=== PATIENT | female | born 1955 | race Caucasian/White ===

== ENCOUNTER 2022-08-25 16:03 | Emergency (ER) | payer MEDICARE, SELFPAY ==
[2022-08-25 16:08] VITALS: BP 148/77; PULSE 75; RESP 16; TEMP 36.6; O2SAT 95; BMI 24.9
--- NOTE | 2022-08-25 16:28 | CRLHL7_ITS ---
For Patients: As a result of the Cures Act, medical imaging exams and procedure reports are released immediately into your electronic medical record. You may view this report before your referring provider. If you have questions, please contact your health care provider. INDICATION: New left C6 radiculopathy. TECHNIQUE: Three views of the cervical spine. COMPARISON: None. FINDINGS: There is straightening of the normal cervical lordosis which could be related to positioning. Otherwise sagittal alignment is normal. There is no evidence of acute fracture. There is moderate to severe disc space narrowing and C4-5 and moderate at C5-6 and C6-7. Degenerative changes also affect the facet joints. The visualized soft tissues are unremarkable. IMPRESSION: Degenerative changes in the cervical spine most prominently at C4-5. No acute abnormality. Dictated by Alina Klein MD @ 08/25/2022 5:20:13 PM (Electronically Signed)
--- NOTE | 2022-08-25 16:30 | ED_ITS ---
HPI - General Adult General Chief complaint: Extremity Pain/Injury, Upper Stated complaint: Left arm pain Time Seen by Provider: 08/25/22 16:04 Source: patient and family Mode of arrival: ambulatory Limitations: no limitations History of Present Illness HPI narrative: 67-year-old female with no significant prior neurological or cardiac history presents to the emergency department with a 4 hour history of burning type pain in her left arm. It is mainly in the left biceps area but also a bit in the medial elbow. It radiates up the shoulder and into the left lateral neck. It is not affected by position or movement. No prior history of similar symptoms. She does admit that she has been using her left arm or since she developed bone spurs in her right shoulder again. She does have osteoarthritis of multiple sites. She says there is no true weakness in the extremity but she had difficulty tight squeezing a patent tube earlier today and had to use a stick to roll the tube instead. 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 She feels like her symptoms have been constant though not really waxing and waning. There are no other neurological changes like vision changes, vertigo, numbness or tingling. There is no confusion, difficulty with word finding. agrees that she is at her neurological baseline. There has been no falls, trauma or injury. She has not tried taking any medication to help with her symptoms. There is no headache. No cervical imaging in the past. No recent chiropractor visits. No fevers or recent illness. Past medical history she states is benign, no major long-term health problems besides well-controlled depression and osteoarthritis of multiple sites. She does take a low-dose SSRI with paroxetine 20 mg once daily. She denies tobacco use. 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 She reports a prior hip replacement and removal of bone spurs in her right shoulder 20 years ago. No family history of cerebrovascular disease. ROS is otherwise negative times 12 systems, other than her baseline chronic osteoarthritic symptoms. Related Data Home Medications Medication Instructions Recorded Confirmed paroxetine HCl 20 mg tablet 20 mg PO DAILY 08/25/22 08/25/22 Previous Rx's Medication Instructions Recorded cyclobenzaprine 10 mg tablet 5 - 10 mg PO HS PRN muscle spasm 08/25/22 #20 tabs prednisone 20 mg tablet 20 mg PO DAILY #5 tabs 03/25/23 Allergies Allergy/AdvReac Type Severity Reaction Status Date / Time No Known Drug Allergies Allergy Verified 08/25/22 16:13 [facility] Social History Smoking Status: Never smoker Do you use any of these nicotine containing products: None Second hand tobacco smoke exposure: No How often do you have a drink containing alcohol: monthly or less How many standard drinks containing alcohol do you have on a typical day: 1 or 2 How often do you have six or more drinks on one occasion: Never AUDIT-C Alcohol total score: 1 Non-prescribed substance use: denies use service: No Exam Const: Vital Signs, click to edit/add: Vital Signs - 24 hr 08/25/22 16:08 Temperature 97.8 F Pulse Rate [Pulse Oximeter] 75 Respiratory Rate 16 Blood Pressure [Ri ght Upper Arm] 148/77 H Pulse Oximetry 95 Oxygen Delivery Me thod Room Air Documenting provider has reviewed patient's vital signs: yes Common normals: no apparent distress and alert General appearance: cooperative, comfortable and well kempt HENMT: Common normals: normocephalic Head and scalp: normocephalic Mouth: oral and palatal mucosa normal Throat: posterior oropharynx normal Eye: Common normals: PERRL, EOMs intact bilaterally and conjunctivae normal General eye: normal appearance of both eyes Conjunctiva: conjunctiva(e) normal Pupil: PERRL Neck & C-Spine: Common normals: full ROM and no lymphadenopathy Other: Cervical range of motion is normal. There is no point bony tenderness to the cervical spine. With maneuvers, I can elicit pain at the lateral process of C6 and C7 on the left only. This does reproduce the symptoms that she is describing. Resp: Common normals: normal respiratory effort, no use of accessory muscles and clear to auscultation bilaterally Effort & inspection: able to speak in complete sentences Auscultation: clear to auscultation bilaterally Cardio: Common normals: regular rate, regular rhythm, S1 normal heart sound, S2 normal heart sound and no murmurs Rate: regular rate Rhythm: regular rhythm Heart sounds: S1 normal and S2 normal Extremity: Other: Left shoulder with some mild impingement signs, does not really reproduce the pain she is describing. The wrist and elbow have no effusion. Normal ip litigation paralegal strength in the hands. There is some mild osteoarthritic changes, especially in the CMC area of the thumb. Mild tenderness to palpation over the extensor tendons of the thumb as well. Neuro: Sensorium/orientation: alert Speech: speech normal Motor exam: strength 5/5 throughout, no tremor noted and no movement abnormalities noted Psych: Appearance: well kempt Attitude: engaged Activity/motor behavior: appropriate eye contact Mood and affect: euthymic mood Insight: insight good Judgement: judgment good Skin: Common normals: no rashes or lesions noted General skin exam: no rashes or lesions noted Course Vital Signs Vital signs: Initial Vital Signs Temperature 97.8 F 08/25/22 16:08 Temperature Source Temporal Artery Scan 08/25/22 16:08 Pulse Rate 75 08/25/22 16:08 Pulse Rhythm Regular 08/25/22 16:08 Pulse Strength 3+ Normal 08/25/22 16:08 Respiratory Rate 16 08/25/22 16:08 Blood Pressure 148/77 H 08/25/22 16:08 Blood Pressure Mean 100 08/25/22 16:08 Blood Pressure Position Sitting 08/25/22 16:08 Pulse Oximetry 95 08/25/22 16:08 Oxygen Delivery Method Room Air 08/25/22 16:08 Vital Signs Temperature 97.8 F 08/25/22 16:08 Pulse Rate 75 08/25/22 16:08 Respiratory Rate 16 08/25/22 16:08 Blood Pressure 148/77 H 08/25/22 16:08 Pulse Oximetry 95 08/25/22 16:08 Oxygen Delivery Method Room Air 08/25/22 16:08 Temperature 97.8 F 08/25/22 16:08 Pulse Rate 75 08/25/22 16:08 Respiratory Rate 16 08/25/22 16:08 Blood Pressure 148/77 H 08/25/22 16:08 Pulse Oximetry 95 08/25/22 16:08 Oxygen Delivery Method Room Air 08/25/22 16:08 Medical Decision Making MDM Narrative Medical decision making narrative: Focal neurological symptoms most suspicious for cervical radiculopathy rather than stroke. Discussed with patient. Symptoms reproducible with palpation over C6-C7, do not recommend head CT. Recommend neck x-ray. She was agreeable to this. Will await x-ray findings, would be a good candidate for a trial of muscle relaxants and a steroid taper. Update: X-ray findings reviewed with patient. Lasted degenerative changes suspicious for radiculopathy. I have recommended a course of steroids, muscle relaxant and rest. She was agreeable to this. Will give 30 mg of prednisone p.o. x1 and Tylenol here in the ED. Discussed use of Tylenol, ibuprofen during the day, Flexeril if needed during the night. Symptoms really should be improving pretty markedly within 3 days on the steroid. Counseled that if she still has persistent symptoms she should contact her primary care team. She may be a good candidate for long-term treatments if she continues to have flares such as physical therapy, injections or even surgery. I would recommend MRI of her symptoms are not improving markedly within a week. Imaging Data Cervical spine x-ray: Attestation: I have reviewed the pertinent imaging results. My impression: Lots of arthritis spurs and loss of normal cervical lordosis Radiologist's impression: IMPRESSION: Degenerative changes in the cervical spine most prominently at C4-5. No acute abnormality. ECG Data Attestation: I personally reviewed and interpreted this ECG as follows: Prior ECG tracings: not available for review Interpretation: Normal sinus rhythm with no significant ST or T-wave abnormalities. Normal axis. Rate 65. Normal R-wave progression. Discharge Plan Discharge Clinical Impression: Left cervical radiculopathy Patient Disposition: Home w/ Parent or Adult Condition: Stable Instructions: Cervical Radiculopathy (ED) Additional Instructions: There are no signs of stroke today thankfully. I do think that most of your symptoms are stemming from arthritis in your neck. Unfortunately, this is common. I have prescribed a short course of steroids, prednisone. This should improve your pain significantly within a couple of days. The medicine can be a bit stimulating. You will take your 1st dose right now but then subsequent days, I would like for you to take it mid morning. Taking it within a few hours of bedtime tends to lead to poor sleep. I would like for you to also take Tylenol 1000 mg every 6 hours as needed for pain. Once the pain improves, you may discontinue this. I will also prescribe a muscle relaxant, Flexeril. I would recommend that you reserve this only for nighttime if the pain is very bothersome. It will also help you sleep. If it is too sedating, consider just starting with a half of a pill. You may increase to a full pill if needed. If you take it within 6 hours of bedtime, you may be quite groggy in the morning though. It is okay to restart the Flexeril and Tylenol if this flares up again in the future. If symptoms last for more than 48 hours, often steroids will be helpful. This is likely to be an ongoing condition for you. If you continue to have episodes, I would recommend talking your primary care provider about ph ysical therapy, an MRI. There also injections and potentially surgeries that can be helpful in the intermission coordinator. Remember that persistent weakness in the hand is a sign that things may be progressing to the point of permanent nerve damage and should be addressed more quickly. I do think that this flared up more recently because you have been using the left side to compensate for difficulties on your right side. This may be a good time to consider addressing those bone spurs in your right shoulder as well. It is also okay to take ibuprofen for the pain. Taking this while you are on prednisone tends to cause more stomach upset so I recommend that you start with Tylenol 1st. If her symptoms are not improving within a couple of days, make an appointment with your primary care team and they will talk about other considerations as well. Activity Level: Activity as Tolerated Discharge Diet: Regular Prescriptions: New prednisone 20 mg tablet 20 mg PO DAILY Qty: 5 0RF cyclobenzaprine 10 mg tablet 5 - 10 mg PO HS PRN (Reason: muscle spasm) Qty: 20 0RF No Action paroxetine HCl 20 mg tablet 20 mg PO DAILY Follow Up/Referrals: Benjy Delvalle MD [Primary Care Provider] - Stand Alone Forms: [employer] Info Instructions
[2022-08-25] MEDS: ACETAMINOPHEN 500 MG TABLET 1000 MG PO (17:14)
[2022-08-25] MEDS: predniSONE 10 MG TABLET 30 MG PO (17:14)
== END 2022-08-25 17:22 | disposition home or self-care (01) ==
LOC: ED 17:11
PROVIDERS: Emergency Provider Family Medicine; PCP Surgery
DX: M54.12 Radiculopathy, cervical region (principal)
CPT/HCPCS: 72040; 99283; 99284; A9270; J7512

== ENCOUNTER 2024-10-15 13:01 | Emergency (ER) | payer MEDICARE, SELFPAY ==
[2024-10-15 13:20] VITALS: BP 129/69; PULSE 67; RESP 14; TEMP 36.2; O2SAT 97; BMI 25.6
[2024-10-15 14:30] LABS: Appearance Urine Cloudy (Clear); Bilirubin Urine Negative (Negative); Blood Urine Trace-intact (Negative); Color Urine Yellow (Yellow); Glucose Urine Negative (Negative); Ketones Urine Negative (Negative); Leukocyte Esterase Urine 1+ (Negative); Nitrite Urine Negative (Negative); Protein Urine Negative (Negative); Urobilinogen Urine 0.2 (0.2-1.0); pH Urine 5.5 (5.0-8.5)
--- NOTE | 2024-10-15 15:02 | CRLHL7_ITS ---
For Patients: As a result of the Century Cures Act, medical imaging exams and procedure reports are released immediately into your electronic medical record. You may view this report before your referring provider. If you have questions, please contact your health care provider. Indication: Abdomen pain. Recent upper endoscopy. Technique: Abdomen 3 view. Comparison: None. Findings: Bowel: Bowel pattern is normal. The amount of colonic stool is within normal limits. Other: No sign of free air. No sign of soft tissue mass. No suspicious calcifications. Osseous structures are unremarkable for age. Impression: Unremarkable abdomen. No finding to explain pain. Dictated by Josh Eugene MD @ 10/15/2024 4:23:11 PM (Electronically Signed)
--- NOTE | 2024-10-15 15:03 | CRLHL7_ITS ---
For Patients: As a result of the Cures Act, medical imaging exams and procedure reports are released immediately into your electronic medical record. You may view this report before your referring provider. If you have questions, please contact your health care provider. INDICATION: Nausea. Vomiting. Abdominal pain. TECHNIQUE: Ultrasound abdomen limited to evaluation of the gallbladder and common bile duct. COMPARISON: 04/23/2016. FINDINGS: Gallbladder: There is at least 2 large shadowing stones along with suspected smaller nonshadowing stones or sludge. No wall thickening or pericholecystic fluid. Common bile duct: 4 mm. No free fluid evident. IMPRESSION: 1. Cholelithiasis. No ultrasound findings to strongly suggest cholecystitis. 2. No biliary ductal dilatation. Dictated by Waldo Delgadillo MD @ 10/15/2024 4:12:33 PM Dictated by: Waldo Delgadillo MD @ 10/15/2024 16:13:02 (Electronically Signed)
[2024-10-15 15:10] LABS: Bacteria Urine Moderate; RBC Urine 0-2 (0-2); WBC Urine 25-50 (0-5)
[2024-10-15] MEDS: 0.9 % SODIUM CHLORIDE 500 ML 500 ML IV (15:19)
[2024-10-15] MEDS: ONDANSETRON 2 MG/ML inj 4 MG IVP (15:19)
--- NOTE | 2024-10-15 15:27 | ED_ITS ---
HPI - General Adult General Date Seen: 10/15/24 Chief complaint: Abdominal Pain Stated complaint: Lower abdominal pain Time Seen by Provider: 10/15/24 14:49 History of Present Illness HPI narrative: Patient is a 69-year-old woman who comes in because of intermittent abdominal pain, fatigue, nausea decreased appetite. She has been having some upper abdominal pain and has been being worked up by her primary doctor. Had an ultrasound last week that did show a gallstone and then this past Saturday had an upper endoscopy. She did have biopsies done, she is not sure what they showed. She says since the endoscopy she has been having intermittent pain that seems more problematic than before and she just has not had an appetite, has felt kind of wiped out. Pain seems to get worse when she eats. She called today to see whether this could be related to the anesthesia and it was recommended that she come to the ER. She has not had fevers, she had about of pain prior to coming into the ER which kind of started in the lower abdomen radiated its way up throu gh her body and now is dissipated. Right now she still feels kind of nauseated but does not have any significant pain. She is generally pretty healthy, no prior abdominal surgeries, she does take medication for depression and was just switched this week to Lexapro. She had previously been taking Paxil. She does not smoke and drinks rarely. Related Data Home Medications ?Medication ?Instructions ?Recorded ?Confirmed escitalopram oxalate 10 mg tablet 10 mg PO DAILY 10/15/24 10/15/24 losartan 100 mg tablet 100 mg PO DAILY 10/15/24 10/15/24 pantoprazole 40 mg tablet,delayed 40 mg PO DAILY 10/15/24 10/15/24 release Allergies Allergy/AdvReac Type Severity Reaction Status Date / Time No Known Drug Allergies Allergy Verified 10/15/24 13:27 Review of Systems Status of ROS: Reports: 10 or more systems reviewed and unremarkable except as noted in History and below [facility] Medical History Osteopenia ?M85.80 - Other specified disorders of bone density and structure, unspecified site (ICD-10) Major depressive disorder ?F32.9 - Major depressive disorder, single episode, unspecified (ICD-10) History of vitamin D deficiency ?Z86.39 - Personal history of other endocrine, nutritional and metabolic disease (ICD-10) Anxiety ?F41.9 - Anxiety disorder, unspecified (ICD-10) Surgical History Status post right hip replacement ?Z96.641 - Presence of right artificial hip joint (ICD-10) Social History Smoking Status: Never smoker Do you use any of these nicotine containing products: None Second hand tobacco smoke exposure: No How often do you have a drink containing alcohol: monthly or less How many standard drinks containing alcohol do you have on a typical day: 1 or 2 How often do you have six or more drinks on one occasion: Never AUDIT-C Alcohol total score: 1 Non-prescribed substance use: denies use service: No Exam Narrative: Exam Narrative: Vital signs reviewed In general, alert, nontoxic woman. She looks younger than her stated age. Comfortable, breathing easily. Head: Normocephalic, atraumatic. Eyes: Sclera clear. Pupils equal and reactive. ENT: Mucous membranes moist. Neck: Supple without adenopathy. Heart: Regular rate and rhythm without murmur. Lungs: Clear. No increased work of breathing, crackles or wheezes. Abdomen: Soft, nondistended. A little bit of epigastric tenderness, no rebound guarding or rigidity. Negative Cuellar's. No lower abdominal tenderness at this time. Extremities: Well perfused, pulses intact. No significant edema. Neurologic: Alert, conversant. Speech fluent, face symmetric. Moves all extremities equally. Skin: Warm, dry well perfused. Affect: Normal. Const: Vital Signs, click to edit/add: Vital Signs - 24 hr 10/15/24 13:20 10/15/24 15:41 Temperature 97.2 F L Pulse Rate [Pulse Oximeter] 67 57 L Respiratory Rate 14 16 Blood Pressure [Ri ght Upper Arm] 129/69 147/77 H Pulse Oximetry 97 98 Oxygen Delivery Me thod Room Air Room Air Course Course ED Course: Patient presents with intermittent abdominal pain, some of this is been going on for a while and then perhaps worsening symptoms since then loss could be a few days ago. Diagnostic considerations would include perforated viscus although I think that is relatively unlikely given her benign exam. Nonetheless will do an x-ray to look for free air. I think it is worth checking x-rays and repeating an ultrasound to make sure she does not have cholecystitis. Medication changed to Lexapro may be contributing to some nausea and anorexia. Certainly her gallstones could be giving her biliary colic. I think the likelihood of other abdominal pathology such as appendicitis, diverticulitis, ischemic bowel, bowel obstruction, etcetera is fairly low overall. I reviewed her abdominal x-ray, no evidence of obstruction or free air. Gallbladder ultrasound is read as showing gallstones but no convincing evidence of cholecystitis, she really does not have significant tenderness over the gallbladder at this time, and labs are reviewed and are normal. I do not think there is enough here to suggest that she needs urgent cholecystectomy. I have talked with her about the symptoms she has been having for a while now, and she says they are more reflux type symptoms, they do not sound exactly like biliary colic to me, and I think having her go back to her primary doctor is a better next step then surgery referral at this time. She has an appointment upcoming with Dr. Delvalle. We did discuss her urine which shows 10-25 white blood cells. She is not having urinary symptoms at this time, she is not interested in taking an antibiotic right now, discussed that we will see how the culture looks in the we can revisit the issue. We did review that if she develops urinary symptoms or new symptoms such as fever she should let us know. Likewise, we talked about biliary colic and expected course, and we also discussed the difference between biliary colic and cholecystitis. If she has persistent or severe upper abdominal pain, nausea or vomiting, fevers etcetera she needs to come back to the ER. She does feel improved after Zofran here some going to prescribe that for her at home. Things may be multifactorial at this time with her antecedent symptoms, recent endoscopy, change to Lexapro etcetera. Vital Signs Vital signs: Initial Vital Signs Temperature 97.2 F L 10/15/24 13:20 Temperature Source Temporal Artery Scan 10/15/24 13:20 Pulse Rate 67 10/15/24 13:20 Pulse Rhythm Regular 10/15/24 13:20 Respiratory Rate 14 10/15/24 13:20 Blood Pressure 129/69 10/15/24 13:20 Blood Pressure Mean 89 10/15/24 13:20 Blood Pressure Position Sitting 10/15/24 13:20 Pulse Oximetry 97 10/15/24 13:20 Oxygen Delivery Method Room Air 10/15/24 13:20 Vital Signs Temperature 97.2 F L 10/15/24 13:20 Pulse Rate 67 10/15/24 13:20 Respiratory Rate 14 10/15/24 13:20 Blood Pressure 129/69 10/15/24 13:20 Pulse Oximetry 97 10/15/24 13:20 Oxygen Delivery Method Room Air 10/15/24 13:20 Temperature 97.2 F L 10/15/24 13:20 Pulse Rate 57 L 10/15/24 15:41 Respiratory Rate 16 10/15/24 15:41 Blood Pressure 147/77 H 10/15/24 15:41 Pulse Oximetry 98 10/15/24 15:41 Oxygen Delivery Method Room Air 10/15/24 15:41 Medications Administered Medications: Discontinued Medications Generic Name Dose Route Start Last Admin Trade Name Freq PRN Reason Stop Dose Admin Sodium Chloride 500 mls @ 500 mls/hr 10/15/24 15:05 10/15/24 17:02 0.9 % Sodium Chloride 500 Ml IV 10/15/24 16:04 Infused .Q1H ONE Infusion Ondansetron HCl 4 mg 10/15/24 15:05 10/15/24 15:19 Ondansetron 2 Mg/Ml Inj IVP 10/15/24 15:06 4 mg ONCE ONE Administration Medical Decision Making Lab Data Lab results reviewed: Yes I reviewed the patient's lab results Labs: Lab Results 10/15/24 10/15/24 Range/Units 14:20 16:15 WBC 6.21 (4.50-11.00) K/uL RBC 5.21 H (4.00-5.20) m/uL Hgb 15.2 (12.0-16.0) gm/dL Hct 45.2 (33.0-51.0) % MCV 87 (80-100) fL MCH 29 (26-34) pg MCHC 34 (32-36) gm/dL RDW Coeff of Dilcia 13.0 (11.5-15.5) % Plt Count 168 (140-440) K/uL Neut % (Auto) 50.3 (42.0-72.0) % Lymph % (Auto) 39.0 (20-44) % [place] % (Auto) 6.9 (0.0-11.0) % Eos % (Auto) 3.5 (0.0-7.0) % Baso % (Auto) 0.3 (0.0-3.0) % Neut # (Auto) 3.12 (1.7-7.0) K/uL Lymph # (Auto) 2.42 (0.90-2.90) K/uL [place] # (Auto) 0.40 (0.00-0.90) K/UL Eos # (Auto) 0.22 (0.00-0.50) K/uL Baso # (Auto) 0.02 (0.00-0.30) K/uL Abs Immat Gran (auto) 0.00 (0.00-0.30) K/uL Imm/Tot Granulo (auto) 0.0 % Sodium 140 (135-149) mmol/L Potassium 4.1 (3.6-5.1) mmol/L Chloride 108 (96-114) mmol/L Carbon Dioxide 24 (20-32) mmol/L Anion Gap 8 (7-15) mEq/L BUN 18 (7-30) mg/dL Creatinine 0.7 (0.5-1.5) mg/dL Estimated Creat Clear 44.56 Estimated GFR 92 ml/min Glucose 84 (60-115) mg/dL Calcium 9.0 (8.4-10.6) mg/dL Total Bilirubin 0.9 (0.1-1.5) mg/dL Direct Bilirubin 0.3 (0.0-0.5) mg/dL AST 29 (12-35) U/L ALT 21 (4-35) U/L Alkaline Phosphatase 72 (40-150) U/L C-Reactive Protein 1.3 H (0.5-1.0) mg/dL Total Protein 7.9 (6.0-8.3) g/dL Albumin 4.7 (3.3-5.0) g/dL Lipase 94 (23-300) U/L Urine Color Yellow (Yellow) Urine Appearance Cloudy A (Clear) Urine pH 5.5 (5.0-8.5) Ur Specific [place] 1.020 (1.000-1.030) Urine Protein Negative (Negative) Urine Glucose (UA) Negative (Negative) Urine Ketones Negative (Negative) Urine Blood Trace-intact A (Negative) Urine Nitrite Negative (Negative) Urine Bilirubin Negative (Negative) Urine Urobilinogen 0.2 (0.2-1.0) Ur Leukocyte Esterase 1+ A (Negative) Urine RBC 0-2 (0-2) Urine WBC 25-50 A (0-5) Ur Squamous Epith Cells None (None-Few) Urine Bacteria Moderate A (None) Imaging Data Abdominal x-ray: Attestation: I have reviewed the pertinent imaging results. Radiologist's impression: Patient: Shelbi Hill MR#: [id number] : 1955 Acct:[id number] Loc: ED Service Date: 10/15/[address]: Ordering Physician: Fatou Lugo M.D. Date of Service: 10/15/24 Procedure(s): XR abdomen min 2V Accession Number(s): [id number] cc: Fatou Lugo M.D.; Benjy Delvalle M.D.~ For Patients: As a result of the Cures Act, medical imaging exams and procedure reports are released immediately into your electronic medical record. You may view this report before your referring provider. If you have questions, please contact your health care provider. Indication: Abdomen pain. Recent upper endoscopy. Technique: Abdomen 3 view. Comparison: None. Findings: Bowel: Bowel pattern is normal. The amount of colonic stool is within normal limits. Other: No sign of free air. No sign of soft tissue mass. No suspicious calcifications. Osseous structures are unremarkable for age. Impression: Unremarkable abdomen. No finding to explain pain. Dictated by Josh Eugene MD @ 10/15/2024 4:23:11 PM Gallbladder ultrasound: Attestation: I have reviewed the pertinent imaging results. Radiologist's impression: [place] [address] Diagnostic Imaging Report Patient: Shelbi Hill MR#: [id number] : 1955 Acct:[id number] Loc: ED Service Date: 10/15/[address]: Ordering Physician: Fatou Lugo M.D. Date of Service: 10/15/24 Procedure(s): US gallbladder Accession Number(s): [id number] cc: Fatou Lugo M.D.; Benjy Delvalle M.D.~ For Patients: As a result of the Century Cures Act, medical imaging exams and procedure reports are released immediately into your electronic medical record. You may view this report before your referring provider. If you have questions, please contact your health care provider. INDICATION: Nausea. Vomiting. Abdominal pain. TECHNIQUE: Ultrasound abdomen limited to evaluation of the gallbladder and common bile duct. COMPARISON: 04/23/2016. FINDINGS: Gallbladder: There is at least 2 large shadowing stones along with suspected smaller nonshadowing stones or sludge. No wall thickening or pericholecystic fluid. Common bile duct: 4 mm. No free fluid evident. IMPRESSION: 1. Cholelithiasis. No ultrasound findings to strongly suggest cholecystitis. 2. No biliary ductal dilatation. Dictated by Waldo Delgadillo MD @ 10/15/2024 4:12:33 PM Dictated by: Waldo Delgadillo MD @ 10/15/2024 16:13:02 Discharge Plan Discharge Clinical Impression: Abdominal pain Patient Disposition: Home, Self-Care Condition: Improved Instructions: Abdominal Pain (ED) Additional Instructions: Follow-up with Dr. Delvalle as planned. You can use Zofran if you need for na usea. If at any time you develop severe or persistent abdominal pain, vomiting, fevers, or other worsening, return to the emergency department for re- evaluation. Right now there is no indication of cholecystitis which is infection/inflammation of the gallbladder. However, if you have worsening or persistent symptoms, that may suggest you need more urgent removal of your gallbladder. You and Dr. Delvalle can discuss whether you should have a referral to General surgery to discuss elective removal of your gallbladder. You have some white blood cells in your urine, as discussed, we will await the culture prior to deciding whether not to treat that finding. If you develop significant urinary symptoms however, please call us. Prescriptions: No Action pantoprazole 40 mg tablet,delayed release (DR/EC) 40 mg PO DAILY losartan 100 mg tablet 100 mg PO DAILY escitalopram oxalate 10 mg tablet 10 mg PO DAILY Follow Up/Referrals: Benjy Delvalle MD [Primary Care Provider] - Stand Alone Forms: [employer] Info Instructions
[2024-10-15 15:41] VITALS: BP 147/77; PULSE 57; RESP 16; O2SAT 98
[2024-10-15 16:29] LABS: Basophils Absolute Auto 0.02 K/uL (0.00-0.30); Basophils Percent Auto 0.3 % (0.0-3.0); Eosinophils Absolute Auto 0.22 K/uL (0.00-0.50); Eosinophils Percent Auto 3.5 % (0.0-7.0); Hematocrit 45.2 % (33.0-51.0); Hemoglobin* 15.2 gm/dL (12.0-16.0); Lymphocytes Absolute Auto 2.42 K/uL (0.90-2.90); Mean Corpuscular HGB Conc 34 gm/dL (32-36); Mean Corpuscular Hemoglobin 29 pg (26-34); Mean Corpuscular Volume 87 fL (80-100); Monocytes Percent Auto 6.9 % (0.0-11.0); Neutrophils Absolute Auto 3.12 K/uL (1.7-7.0); Neutrophils Percent Auto 50.3 % (42.0-72.0); Platelet Count* 168 K/uL (140-440); Red Blood Count 5.21 m/uL (4.00-5.20); White Blood Count* 6.21 K/uL (4.50-11.00)
[2024-10-15 16:33] LABS: Slide Review Reflex No
[2024-10-15 16:42] LABS: Chloride* 108 mmol/L (96-114)
[2024-10-15 16:43] LABS: Albumin* 4.7 g/dL (3.3-5.0); Potassium* 4.1 mmol/L (3.6-5.1); Sodium* 140 mmol/L (135-149)
[2024-10-15 16:45] LABS: Blood Urea Nitrogen* 18 mg/dL (7-30); Creatinine* 0.7 mg/dL (0.5-1.5); Est. Creatinine Clearance* 44.56; Estimated Glomerular Filt Rate 92 ml/min
[2024-10-15 16:46] LABS: Alanine Aminotransferase* 21 U/L (4-35); Alkaline Phosphatase* 72 U/L (40-150); Anion Gap 8 mEq/L (7-15); Aspartate Amino Transferase* 29 U/L (12-35); Bilirubin Direct* 0.3 mg/dL (0.0-0.5); Bilirubin Total* 0.9 mg/dL (0.1-1.5); Carbon Dioxide* 24 mmol/L (20-32); Glucose* 84 mg/dL (60-115); Lipase* 94 U/L (23-300); Total Protein* 7.9 g/dL (6.0-8.3)
[2024-10-15 16:49] LABS: C Reactive Protein* 1.3 mg/dL (0.5-1.0)
--- OUTSIDE RECORDS SUMMARY | 2024-10-15 17:56 | XMS_ITS | Clinical Summary ---
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 90 Tablet 3 5 Active amLODIPine 2.5 mg tabletIndication s:Hypertension, unspecified type Take 1 Tablet (2.5 mg) by mouth once daily. 90 Tablet 3 5 Active pantoprazole 40 mg delayed-release tabletIndication s:Abdominal pain, epigastric Take 1 Tablet (40 mg) by mouth once daily. 90 Tablet 3 5 Active escitalopram oxalate 10 mg tabletIndication s:Mild episode of recurrent major depressive disorder,Anxiety Take 1 Tablet (10 mg) by mouth once daily in the morning. 90 Tablet 3 5 Active omeprazole (PRILOSEC) 40 mg Delayed-Release capsuleIndicatio ns:Chronic GERD Take 1 Capsule (40 mg) by mouth once daily before a meal. 90 Capsule 3 5 09/30/19 25 Discontinue d(*Med ineffective ) PARoxetine (PAXIL) 20 mg tabletIndication s:Mild episode of recurrent major depressive disorder Take 1 Tablet (20 mg) by mouth once daily in the morning. 90 Tablet 3 5 09/22/19 25 Discontinue d(Duplicate therapy (E-cancel not sent)) PaxiL 20 mg tabletIndication s:Mild episode of recurrent major depressive disorder Take 1 Tablet (20 mg) by mouth once daily in the morning. 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 Carmichael 10/11/2021 Mild episode of recurrent major depressive disor sola 07/24/2021 Chronic right shoulder pain 02/22/2021 Overview (05/23/2022): November 2020: Right subacromial bursa cortisone injection November: Ultrasound-guided cortisone shot to right shoulder GH joint, very good pain relief and improve range of motion.. September 2021: Repeat Ultrasound guided cortisone to right Shoulder GH Joint. Mar 2022: Repeat Ultrasound guided cortisone to right Shoulder GH Joint: No benefit. Lumbar radiculopathy 11/05/2019 Resolved Problems Problem Noted Date Diagnosed Date Resolved Date Atypical chest pain 08/15/2020 07/24/19 22 Depression 04/08/2018 07/24/2021 Chronic GERD 04/08/2018 07/24/2021 Burning mouth syndrome 12/02/201704/08 DJD (degenerative joint disease) 09/19/2023 Avascular necrosis of bone of right hip 09/19/2023 Encounters Date Type Department Care Team Description 10/15/2024 Nurse Triage [facility] [address] [facility] [address] Benjy Delvalle MD Abdominal Pain 10/15/2024 Telephone [facility] [address] [facility] [address] Benjy Delvalle MD Questions (Procedure) 10/12/2024 10:37 AM CDT - 10/12/2024 11:59 PM CDT Hospital Encounter Serafin Man MD 10/12/2024 Orders Only [facility] Scanner 1 scan: (1-Ord) [facility], UPPER GI ENDOSCOPY, 10/12/2024 10/12/2024 Lab Requisition [facility] [phone] Serafin Man MD 10/12/[address] [facility] [address] [facility] [address] [place] [address] Serafin Man MD <No scans attached> 10/12/2024 Surgery [facility] [address] [facility] [address] [place] [address] Serafin Man MD EGD 10/06/2024 Telephone [facility] [place] [address] Serafin Man MD Appointment Reminder (EGD on 10/12/2024 at [facility]) 10/05/2024 1:00 PM CDT Ancillary Procedure [facility] [place] [address] 10/05/2024 Travel 10/03/2024 Travel 10/01/2024 7:45 AM CDT Orders Only [place] [address] [facility] [place] [address] Lab, [place] [facility] 10/01/2024 Travel 09/30/2024 8:40 AM CDT Ancillary Procedure [facility] [place] [address] 09/30/2024 Telephone [facility] [place] [address] Serafin Man MD EGD 09/29/2024 10:55 AM CDT Office Visit [facility] [place] [address] Benjy Delvalle MD Medicare ANNUAL (subsequent) Visit (69 yr old female) 09/29/2024 Travel 09/25/2024 Telephone [facility] [address] [facility] [address] Benjy Delvalle MD Prior Authorization (PaxiL 20 mg tablet (PA NOT NEEDED)) 09/24/2024 Travel 09/20/2024 Refill [facility] [address] [place] [address] Benjy Delvalle MD Refill Request (Paroxetine) 08/25/2024 10:55 AM CDT Office Visit [facility] [address] [place] [address] Benjy Delvalle MD Follow Up 08/24/2024 Travel from Last 3 Months Immunizations Immunization Administration Dates Next Due COVID-19 vaccine (Moderna 100mcg/0.5mL) PF, MDV 09/01/2020,08/04/2020 COVID-19 vaccine (Pfizer-Bio NTech 30mcg/0.3mL) 12YO+ BIVALENT PF, MDV 02/28/2022 COVID-19 vaccine (Pfizer-Bio NTech 30mcg/0.3mL) 12YO+ JUAN PABLO-SUCROSE PF, MDV 12/27/2021 COVID-19 vaccine (Pfizer-Bio NTech 30mcg/0.3mL) PF, MDV 04/12/2021 HepA-HepB (Twinrix) 03/08/2023,02/15/2023,2022 Hepatitis B (Adult) 06/22/2013, 4,02/16/2013,2012 Influenza, IIV4 04/08/2018 Influenza, IIV4 (=>6mos) MDV 04/07/2015 Influenza, Inactivated AIIV4 (Age 65+ Years) Preserv Free 08/19/2023,03/21/2020 Influenza, Inactivated IIV3 (Age 65+ Years) Preserv Free 05/15/2024 Pneumococcal Conj 20-valent (Prevnar 20) 02/08/2023 Pneumococcal Poly,23-Valent (Pneumovax) 03/21/2020 Tdap 08/29/2023,10/29/2012 Tetanus Toxoid 06/20/1992 Typhoid (injectable) 02/08/2023 Zoster (Shingrix-RZV, recombinant) 11/07/2023, Zoster (Zostavax-ZVL, live) 10/29/2012 Family History Medical History Relation Name Comments Cancer Father Hypertension Father Hypertension Mother Cancer-breast No Family History Cancer-ovarian No Family History Relation Name Status Comments Father Mother Social History Tobacco Use Types Packs/Day Years Used Date Smoking Tobacco: Never Smokeless Tobacco: Never Tobacco Cessation:Counseling Given: Yes Alcohol Use Standard Drinks/Week Comments Yes 3 (1 standard drink = 0.6 oz pur e alcohol) occasional PHQ-2 Answer Date Recorded PHQ-2 TOTAL SCORE 1 09/29/2024 Social Connections Answer Date Recorded Do you often feel lonely or isolated from those around you? 0 08/25/2024 Financial Resource Strain Answer Date R ecorded Difficulty of Paying Living Expenses 3 08/25/2024 Difficulty of Paying Living Expenses Not on file 08/25/2024 Food Insecurity Answer Date Recorded Do you worry your food will run out before you are able to buy more? 1 08/25/2024 Transportation Needs Answer Date Record ed Does lack of transportation keep you from medica l appointments? 1 08/25/2024 Does lack of transportation keep you from work, meetings or getting things that you need? 1 08/25/2024 Housing Stability Answer Date Recorded What is your housing situation today? 1 08/25/2024 Utilities Answer Date Recorded Do you have trouble paying f or utilities (for example, heat, electricity, water, phone)? 1 08/25/2024 Comments No Sex and Gender Information Value Date Recorded Sex Assigned at Female 03/18/2020 10:47 AM CDT Legal Sex Female 3:14 PM CDT Gender Identity Female 03/18/2020 10:47 AM CDT Sexual Orientation Not on file Travel History Travel Start Travel End [place] 09/15/2024 09/18/2024 Obstetrics History Para Term AB IAB SAB Ectopic Multiple Livin g Live Births 2 2 2 2 Date Outcome GA Total Labor Labor/2nd/3rd Weight Sex Type Anes PTL Kriss A1 A5 Name Clin Term Term Last Filed Vital Signs Vital Sign Reading Time Taken Comments Blood Pressure 125/72 09/29/2024 11:05 AM CDT Pulse 72 09/29/2024 11:05 AM CDT Temperature 36.5 C (97.7 F) 06/05/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 Respiratory Rate 16 09/30/2021 8:09 AM CDT Oxygen Saturation 93% 09/29/2024 11: 00 AM CDT Inhaled Oxygen Concentration - - Weight 67.9 kg (149 lb 12.8 oz) 025 11:00 AM CDT Height 163.6 cm (5' 4.41) 09/29/2024 1 1:00 AM CDT Body Mass Index 25.39 09/29/2024 11:00 AM CDT Plan of Treatment Upcoming Encounters Date Type Department Care Team (Late st Contact Info) Description 11/03/2024 9:15 AM CDT Office Visit [facility] [address] [place] [address] Benjy Delvalle MD [address] [place] [address] Health Maintenance Due Date Last Done Comments COVID-19 vaccine series ( season) 2024 05/15/2024, 03/06/2023, 02/28/2022, Additional history exists BMI (ht and wt on same day) for age 18+ 09/29/2025 09/29/2024, 06/05/2024, 09/19/2023, Additional history exists Depression screening for age 12+ 09/29/2025 09/30/19 Mammogram for age 45-75 09/30/2025 10/01/19, 08/22/2023, 08/10/2021, Additional history exists Medicare Wellness for age 65+ 09/30/2025, 09/19/2023, 07/24/2021 RSV vaccine for adults or (1 - 1-dose 75+ series) 2028 Lipids for age 45-75 08/25/2029 08/25/2024, 08/19/2023, 07/24/2021 Colonoscopy through age 75 02/07/203102/07, 02/07/2021, 02/07/2021 Tetanus booster 08/28/2033 08/29/2023, 10/29/2012 Hepatitis C screening for ag e 18-79 Completed 07/24/2021 DEXA/DXA scan for age 65+ Completed 08/10/2021 Pneumococcal series for age 50+ Completed , 03/21/2020 Tdap Completed 08/29/2023, 10/29/2012 Zoster (shingles) series for age 50+ Completed 11/07/2023, 08/29/2023, 10/29/2012 Influenza Vaccine Completed 05/15/2024, , 03/21/2020, Additional history exists Medical Devices Implanted Type Area Oracle Identity Management Consultant Device Identifier Shelf Expiration Date Model / Serial / Lot Shell Hip 52e Trident Ii Clusterhole Tritanium - [id number] Implanted:Qty: 1 on 09/29/2021 by Manish Carmichael MD at [facility] Right: Hip [employer] 07/12/2026 702-04-52E / / [id number] Mdm Liner Cementless 42mm Alph Cde E Implanted:Qty: 1 on 09/29/2021 by Manish Carmichael MD at [facility] Right: Hip [employer] 07/19/2026 [id number] / / [id number] Screw Hip 6.5x30mm [place] Low Profile Hex - [id number] Implanted:Qty: 1 on 09/29/2021 by Manish Carmichael MD at [facility] Right: Hip [employer] 06/25/2026 [id number] / / [id number] Insignia Hip Stem Standard Offset -Size 2 Implanted:Qty: 1 on 09/29/2021 by Manish Carmichael MD at [facility] Right: Hip [employer] 07/10/2026 [id number] / / [id number] Jainism Adm/Mdm X3 Insert 42 E, 28mm Implanted:Qty: 1 on 09/29/2021 by Manish Carmichael MD at [facility] Right: Hip [employer] 02/23/2026 7236-2-848 / / [id number] Head Hip Od28mm +4 Biolox Delta C-Taper Alumina Cer - [id number] Implanted:Qty: 1 on 09/29/2021 by Manish Carmichael MD at [facility] Right: Hip [employer] 07/08/2026 [id number] / / [id number] Procedures Procedure Name Priority Date/Time Associated Diagnosis Comments PATH TISSUE EXAM Routine 10/12/2024 12:1 0 PM CDT SCAN-ENDOSCOPY 10/12/2024 12:00 AM CDT US ABDOMEN COMPLETE Routine 10/05/2024 1 :16 PM CDT Abdominal pain, epigastric H PYLORI ANTIGEN,STOOL Routine 10/01/2024 10:47 AM CDT Abdominal pain, epigastric XR MAMMO SONIA BILAT SCREEN Routine 09/30/2024 8:57 AM CDT Visit for screening mammogram BASIC METABOLIC PANEL Routine 08/25/2024 11:59 AM CDT Hypertension, unspecified type LIPID PANEL Routine 08/25/2024 11:59 AM CDT Hyperlipidemia, unspecified hyperlipidemia type VITAMIN B12 Routine 08/25/2024 11:59 AM CDT Hypertension, unspecified type XR DXA BONE DENSITY 2 SITES AXIAL Routine 08/10/2021 11: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 Menopause ANTI HCV Routine 07/24/2021 3:18 PM 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 Need for hepatitis C screening test COLONOSCOPY SCREENING Routine 02/07/2021 9:40 AM CDT Screening for colon cancer SURGICAL PROCEDURE (TYPE PROCEDURE DESCRIPTION BELOW) Epigastric pain from Last 3 Months or Most Recently Relevant to Health Maintenance Results * PATH TISSUE EXAM (10/12/2024 12:10 PM CDT) Case Report Pathology Report Case: [id number] Authorizing Provider: Serafin Man MD Collected: 10/12/2024 1210 Ordering Location: [facility] Received: 10/12/20242025 Pathologist: Zander Chilel MD Specimens: A) - Duodenum Biopsy B) - Gastric Biopsy C) - Distal Esophagus Biopsy D) - Mid Esophagus Biopsy 11:21 AM CDT [facility] Final Diagnosis A) DUODENUM, BIOPSY: 1. Normal duodenal mucosa 2. Negative for celiac disease and other enteropathy B) STOMACH, BIOPSY: 1. Mild non-specific chronic inflammation (see comment) a. Sampling: Antral and body mucosae b. Distribution: Antral and body mucosae 2. Negative for atrophic gastritis 3. Negative for Helicobacter (Helicobacter immunohistochemistry negative) C) ESOPHAGUS, DISTAL, BIOPSY: 1. Normal esophageal squamous mucosa 2. Negative for reflux changes and eosinophilic esophagitis 3. Negative for columnar mucosa D) ESOPHAGUS, MID, BIOPSY: 1. Normal esophageal squamous mucosa 2. Negative for reflux changes and eosinophilic esophagitis 3. Negative for columnar mucosa 5 11:21 AM CDT [facility] at 1121 CDT Comment B) Mild chronic inflammation in the stomach in the absence of Helicobacter often remains unexplained, but it could reflect prior or treated Helicobacter infection. The likelihood of histologically undetected Helicobacter is quite low in our opinion. Dr. Espinosa reviewed the immunohistochemistry. 5 11:21 AM CDT [facility] Clinical Information Ms. Hill is a 69-year-old female patient undergoing EGD for epigastric abdominal pain, esophageal reflux with symptoms that persist despite appropriate therapy, and chest pain (noncardiac EGD reveals nodular and granular mucosa in the esophagus. Erythematous mucosa was present in the gastric antrum. The examined duodenum was normal. 5 11:21 AM CDT [facility] Gross Description A) Received in formalin are 5 rucker mucosal fragments ranging from 2 mm to 5 mm in greatest dimension, which are entirely submitted in one cassette. It is labeled with the patient's name and designated A, duodenum. B) Received in formalin are 5 rucker mucosal fragments ranging from 1 mm to 7 mm in greatest dimension, which are entirely submitted in one cassette. It is labeled with the patient's name and designated B, gastric antrum and body. C) Received in formalin are 4 rucker mucosal fragments ranging from 3 mm to 6 mm in greatest dimension, which are entirely submitted in one cassette. It is labeled with the patient's name and designated distal esophagus. D) Received in formalin are 3 rucker mucosal fragments ranging from 1 mm to 4 mm in greatest dimension, which are entirely submitted in one cassette. It is labeled with the patient's name and designated D, mid esophagus. Dru Andrea 10/12/2024 9:07 PM 11:21 AM CDT [facility] Microscopic Description The final diagnosis is based on microscopic examination of appropriate sections of all specimens. 11:21 AM CDT [facility] Additional Information Interpreted at [facility] - [address] [facility] [address], [place] [address] Immunohistochemistry controls were reviewed and approved as appropriate by the pathologist during this examination. 11:21 AM CDT [facility] Other (Duodenum Biopsy) 10/12/2024 12:10 PM CDT 10/12/2024 8:26 PM CDT Specimen (specimen) GASTRIC BIOPSY SPECIMEN / Unknown 10/12/2024 12:11 PM CDT 10/12/2024 8:26 PM CDT Specimen (specimen) (Distal Esophagus Biopsy) 10/12/2024 12:13 PM CDT 10/12/2024 8:26 PM CDT Specimen (specimen) (Mid Esophagus Biopsy) 10/12/2024 12:15 PM CDT 10/12/2024 8:26 PM CDT us Serafin Man MD PATHOLOGY/CYTOLOGY Final Result [facility] [address] [place] [address], [place] * SCAN-ENDOSCOPY (10/12/2024 12:00 AM CDT) us Scanner OTHER Final Result * US ABDOMEN COMPLETE (10/05/2024 1:16 PM CDT) Anatomical Region Laterality Modality Abdomen, LIVER, KIDNEYS, PANCREAS, GALLBLADDER, SPLEEN Ultrasound 10/05/2024 3:31 PM CDT Impressions 10/05/2024 3:31 PM CDT Cholelithiasis. Remainder unremarkable. Dictated by John Hastings MD @ 10/05/2024 3:31:20 PM (Electronically Signed) Narrative 10/05/2024 3:31 PM CDT For Patients: As a result of the Cures Act, medical imaging exams and procedure reports are released immediately into your electronic medical record. You may view this report before your referring provider. If you have questions, please contact your health care provider. INDICATION: Abdominal pain, epigastric COMPARISON: none TECHNIQUE: Real time bell scale imaging and color Doppler analysis was performed of the abdomen. FINDINGS: The patient`s liver is of normal size and has uniform echogenicity, as visualized. There is a normal appearance of the hepatic IVC and proximal abdominal aorta. There is no evidence of ascites. The gallbladder is of normal size and there is an echogenic and shadowing stone within the gallbladder measuring 2.3 cm. The gallbladder wall measures 2 mm in thickness. The common bile duct is of normal size and measures 3 mm in diameter at the level of the frances hepatis. The pancreas appears normal. There is no evidence of a stone or hydronephrosis within the kidneys. The right kidney measures 8.8 cm in length. Normal left kidney which measures 7.2 cm. The spleen measures 9.3 cm. Procedure Note John Hastings MD - 10/05/2024 For Patients: As a result of the Cures Act, medical imagingexams and procedure reports are released immediately into your electronicmedical record. You may view this report before your referring provider.If you have questions, please contact your health care provider. INDICATION: Abdominal pain, epigastric COMPARISON: none TECHNIQUE: Real time bell scale imaging and color Doppler analysis was performed ofthe abdomen. FINDINGS: The patient`s liver is of normal size and has uniform echogenicity, asvisualized. There is a normal appearance of the hepatic IVC and proximalabdominal aorta. There is no evidence of ascites. The gallbladder is ofnormal size and there is an echogenic and shadowing stone within thegallbladder measuring 2.3 cm. The gallbladder wall measures 2 mm inthickness. The common bile duct is of normal size and measures 3 mm indiameter at the level of the frances hepatis. The pancreas appears normal.There is no evidence of a stone or hydronephrosis within the kidneys. Theright kidney measures 8.8 cm in length. Normal left kidney which measures7.2 cm. The spleen measures 9.3 cm. IMPRESSION: Cholelithiasis. Remainder unremarkable. Dictated by John Hastings MD @ 10/05/2024 3:31:20 PM (Electronically Signed) Benjy Delvalle MD US Final Resu lt * H PYLORI ANTIGEN,STOOL (10/01/2024 10:47 AM CDT) HELICOBACTER PYLORI AG, EIA, STOOL SEE NOTE [facility] Comment: HELICOBACTER PYLORI AG, EIA, STOOL Micro Number: [id number] Test Status: Final Specimen Source: Stool/feces Specimen Quality: Adequate H.pylori Ag: Not Detected Antimicrobials, proton pump inhibitors, and bismuth preparations inhibit H. pylori and ingestion up to two weeks prior to testing may cause false negative results. If clinically indicated the test should be repeated on a new specimen obtained two weeks after discontinuing treatment. Reference Range: Not Detected Stool STOOL SPECIMEN / Unknown 10/01/2024 10:47 AM CDT 10/01/2024 10:50 AM CDT Benjy Delvalle MD MICROBIOLOGY Final Resu lt [employer] [address] [address], [facility] [address] * XR MAMMO SONIA BILAT SCREEN (09/30/2024 8:57 AM CDT) Anatomical Region Laterality Modality BREASTS, Breast Left, Breast Right Bilateral Mammography Impressions 10/02/2024 7:52 AM CDT There is no radiographic evidence for malignancy. Recommend annual mammograms. MAMMOGRAM ASSESSMENT: ACR 1 Negative PATIENTS: You will also receive a letter with your examination results in an easy to read format. If you have questions about your results, please contact your referring provider. Narrative 10/02/2024 7:52 AM CDT For Patients: As a result of the Century Cures Act, medical imaging exams and procedure reports are released immediately into your electronic medical record. You may view this report before your referring provider. If you have questions, please contact your health care provider. XR MAMMO SONIA BILAT SCREEN [[id number]] CLINICAL HISTORY: This is an asymptomatic 69 y.o. patient. INDICATION FOR EXAM: Mammogram Screening. TECHNIQUE: CC and MLO views were obtained. This study was evaluated with the assistance of Computer-Aided Detection. Breast Tomosynthesis was used in interpretation. COMPARISON FILM: Yes 08/22/23 [facility] 08/10/21 [employer] FINDINGS: There are scattered areas of fibroglandular density. There are no dominant masses, suspicious micro calcifications or areas of architectural distortion. us Benjy Delvalle MD MAMMO Final Resu lt * VITAMIN B12 (08/25/2024 11:59 AM CDT) VITAMIN B12 983 200 - 1,100 pg/mL [facility] Blood BLOOD SPECIMEN / Unknown 08/25/2024 11:59 AM CDT 08/25/2024 11:59 AM CDT us Benjy Delvalle MD CHEMISTRY Final Resu lt [employer] [facility] [address] [place] [address], [facility] [address] [place] [address] * (ABNORMAL) LIPID PANEL (08/25/2024 11:59 AM CDT) CHOLESTEROL, TOTAL 217(H) <200 mg/dL [facility] HDL CHOLESTEROL 56 > OR = 50 mg/dL [facility] TRIGLYCERIDES 113 <150 mg/dL [facility] LDL-CHOLESTEROL 138(H) mg/dL (calc) [facility] Comment: Reference range: <100 Desirable range <100 mg/dL for primary prevention; <70 mg/dL for patients with CHD or diabetic patients with > or = 2 CHD risk factors. LDL-C is now calculated using the Eduard calculation, which is a validated novel method providing better accuracy than the Friedewald equation in the estimation of LDL-C. Serafin SS et al. JUANY. 2013;310(19): 0501-3569 (http://education.[employer]/faq/KKK770) CHOL/HDLC RATIO 3.9 <5.0 (calc) [facility] NON HDL CHOLESTEROL 161(H) <130 mg/dL (calc) [facility] Comment: For patients with diabetes plus 1 major ASCVD risk factor, treating to a non-HDL-C goal of <100 mg/dL (LDL-C of <70 mg/dL) is considered a therapeutic option. Blood BLOOD SPECIMEN / Unknown 08/25/2024 11:59 AM CDT 08/25/2024 11:59 AM CDT Benjy Delvalle MD CHEMISTRY Final Resu lt [employer] [facility] [address] [place] [address], [facility] [address] * BASIC METABOLIC PANEL (08/25/2024 11:59 AM CDT) [facility] GLUCOSE 78 65 - 99 mg/dL [employer] [facility] Comment: Fasting reference interval UREA NITROGEN (BUN) 25 7 - 25 mg/dL [facility] CREATININE 0.80 0.60 - 1.00 mg/dL [employer] [facility] EGFR 79 > OR = 60 mL/min/1. 73m2 [facility] BUN/CREATININE RATIO SEE NOTE: 6 - 22 (calc) [facility] Comment: Not Reported: BUN and Creatinine are within reference range. SODIUM 144 135 - 146 mmol/L [facility] POTASSIUM 4.4 3.5 - 5.3 mmol/L [facility] CHLORIDE 105 98 - 110 mmol/L [facility] CARBON DIOXIDE 27 20 - 32 mmol/L [facility] ELECTROLYTE BALANCE 12 7 - 17 mmol/L (calc) [facility] CALCIUM 9.4 8.6 - 10.4 mg/dL [facility] Blood BLOOD SPECIMEN / Unknown 08/25/2024 11:59 AM CDT 08/25/2024 11:59 AM CDT us Benjy Delvalle MD CHEMISTRY Final Resu lt [employer] [facility] [address] [place] [address], [facility] [address] [place] [address] * XR DXA BONE DENSITY 2 SITES AXIAL [07343.1] (08/10/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 RECOMMENDATIONS: The [employer]opor[employer] recommends pharmacologic treatment for patients with T-scores of -2.5 or less, patients with prior history of fragility fractures, or patients with 10-year probability of greater than 3% at hips or greater than 20% of suffering major osteoporotic fractures. Recommend continued optimization of calcium and vitamin D intake through dietary means and/or supplementation and regular exercise. Repeat scan recommended in 5-7 years. Estefany Mcclendon PA-C Narrative 08/14/2021 3:05 PM CDT For Patients: Results are automatically released to your [employer] ([employer]) account once available, in compliance with federal regulations. This means that you may see your results before your provider has had a chance to review them. Please allow 2-3 business days for your provider to comment on the results. XR DXA Bone Mineral Density (BMD) EXAM LOCATION: [address] [address] PATIENT NAME: Shelbi Hill DATE OF : 1955 EXAM DATE: 08/10/2021 REQUESTING PROVIDER: Benjy Delvalle MD GENDER AT : female HEIGHT: 5' 5.45 (07/24/2021) WEIGHT: 148 lb 9.6 oz (07/24/2021) MENOPAUSAL STATUS: Postmenopausal RACE/ETHNICITY: White RISK FACTORS: White Race CURRENT MEDICATION FOR BONE LOSS: NONE INDICATION: Menopause COMPARISON DATE(S): None DXA scans are compared to prior studies for a patient only when the two (or more) studies were performed on the same scanner. It is not possible to compare data generated on one scanner to data from another because there are not standards in DXA equipment. This applies even if the two scanners are made by the same risk intern. PROCEDURE: Dual-energy x-ray absorptiometry performed with routine technique. Reporting is completed in the form of a T-score. The T-score represents the standard deviation from peak bone mass based on young healthy adult. A Z-score is used for diagnosis in premenopausal women, and for men under the age of 50. FINDINGS: RESULT LUMBAR SPINE L1-L2 BMD: 1.416 g/cm2 T-Score: + 2.0 Z-Score: + 3.6 Change from prior: None RESULTS FEMUR Left femoral neck BMD: 1.028 g/cm2 T-Score: - 0.1 Z-Score: + 1.5 Change from prior: None Right femoral neck BMD: 1.153 g/cm2 T-Score: + 0.8 Z-Score: + 2.4 Change from prior: None Left hip BMD: 1.157 g/cm2 T-Score: + 1.2 Z-Score: + 2.5 Change from prior: None Right hip BMD: 1.183 g/cm2 T-Score: + 1.4 Z-Score: + 2.7 Change from prior: None WHO criteria: Normal: T-score at or above -1 SD Osteopenia: T-score between -1.1 and -2.4 SD Osteoporosis: T-score at or below -2.5 SD us Benjy Delvalle MD DEXA Final Resu lt * ANTI HCV (07/24/2021 3:18 PM 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) HEPATITIS C ANTIBODY Non-React caio Non-React caio 07/24/2021 10:46 PM 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 [facility] Comment:Antibodies to HCV no t detected; does not exclude the possibility of exposure to HCV. Blood BLOOD SPECIMEN / Unknown Venipuncture / Unknown 07/24/2021 3:18 PM 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 07/24/2021 3:19 PM 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 us Benjy Delvalle MD SEND OUTS Final Resu lt [facility] [address] [place] [address], [place] * COLONOSCOPY (02/07/2021 9:41 AM CDT) 02/07/2021 9:41 AM CDT Narrative Transcriptions Serafin Man MD - 02/07/2021 10:50 AM CDT Patient Name: Shelbi Hill Procedure Date: 02/07/2021 Gender: Female Date of : 1955 Admit Type: Outpatient Procedure: Colonoscopy Proceduralist: Serafin Man MD , Veronica Jean (Nurse) Referring MD: Ron Boothe Indications/Pre-Op Diagnosis: Screening for colorectal malignant neoplasm, Last colonoscopy: June 2010 Medications: Fentanyl 100 micrograms IV, Midazolam 3 mgIV, The level of sedation administered wasmoderate Procedure Description: The patient had risks, benefits and alternatives explained to andgave informed consent. The patient had a stable cardiopulmonary status and judged an adequate candidate for conscious sedation. The Colonoscope was passed through the anus and advanced to thececum, identified by appendiceal orifice and ileocecal valve. Thecolonoscopy was performed without difficulty. The patient tolerated the procedure well. The quality of the bowel preparation was good. The ileocecal valve, appendiceal orifice, and rectum were photographed. Complications: No immediate complications. Estimated Blood Loss & Specimen: Estimated blood loss: none. Specimen collected - None Findings: The entire examined colon appeared normal on direct and retroflexion views. Impressions/Post-Op Diagnosis: - The entire examined colon is normal on direct and retroflexionviews. - No specimens collected. Recommendation: - Patient has a contact number available for emergencies. The signsand symptoms of potential delayed complications were discussed with the patient. Return to normal activities tomorrow. Written discharge instructions were provided to the patient. - Resume previous diet. - Continue present medications. - Repeat colonoscopy in 10 years for screening purposes. Moderate Sedation: Moderate (conscious) sedation was administered by the endoscopy nurse and supervised by the endoscopist. The following parameters were monitored: oxygen saturation, heart rate, respiratory rate, blood pressure, adequacy of pulmonary ventilation and reponse to care. Please refer to the patient's medical record flowsheets and nursing notes for moderate sedation details. Total physician intraservice time was 20 minutes. Serafin Man MD 02/07/2021 10:50:34 AM This report has been signed electronically. Note Initiated On: 02/07/2021 9:41 AM Procedure Code(s): --- Professional --- 24412, Colonoscopy, flexible; diagnostic, including collection of specimen(s) bybrushing or washing, when performed (separateprocedure) Diagnosis Code(s): --- Professional --- Z12.11, Encounter for screening formalignant neoplasm of colon CPT copyright 2020 [employer]. All rights reserved. The codes documented in this report are preliminary and upon internal medicine physician assistant reviewmay be revised to meet current compliance requirements. Scope In: 10:30:33 AM Scope Withdrawal Time 0 hours 6 minutes 21 seconds Scope Out: 10:47:04 AM Serafin Man MD PROCEDURE ORD Final Res ult from Last 3 Months or Most Recently Relevant to Health Maintenance [facility] A HB ONLY [employer] MED[employer]ARE ADVANTAGE Advance Directives * Full Code (Latest Code Status on File) Date Activated Date Inactivated Comments 09/29/2021 3:59 PM 09/30/2021 3:13 PM Question Answer Comments Code Status Discussion: Unable to Assess Preferences, Provider to review later * Full Code Date Activated Date Inactivated Comments 09/29/2021 8:12 AM 09/29/2021 3:59 PM Question Answer Comments Code Status Discussion: Not Discussed Care Teams Plant Protection Superintendent Relationship Specialty Start Date End Date Benjy Delvalle MD [address] [place] [address] PCP - General Family Practice 09/07/21
== END 2024-10-15 17:24 | disposition home or self-care (01) ==
PROVIDERS: Emergency Provider Emergency Medicine; PCP Surgery
DX: R10.9 Unspecified abdominal pain (principal)
CPT/HCPCS: 36415; 74019; 76705; 80048; 80076; 81001; 83690; 85025; 86140; 87086; 96374; 99284; J2405; J7030